=== PATIENT | male | born 1985 | race Two or more races ===

== ENCOUNTER 2017-05-14 18:46 | Emergency (ER) | payer MEDICAID ==
[~2017-05-14] VITALS: Ht 167.6 cm; Wt 90.7 kg
[2017-05-14 19:05] VITALS: BP 138/81
== END 2017-05-14 23:15 | disposition left against medical advice (07) ==
LOC: ER 18:58
DX: M79.602 Pain in left arm (principal); Z53.21 Procedure and treatment not carried out due to patient leaving prior to being seen by health care provider; W22.8XXA Striking against or struck by other objects, initial encounter; Y93.89 Activity, other specified; Y92.89 Other specified places as the place of occurrence of the external cause; Y99.8 Other external cause status

== ENCOUNTER 2020-11-16 23:45 | Emergency (ER) | payer SELFPAY ==
[~2020-11-16] VITALS: Ht 165.1 cm; Wt 72.6 kg
[2020-11-17] MEDS ORDERED: SODIUM CHLORIDE 0.9% 1,000 ML IV ONE ×2 (00:15→02:00)
[2020-11-17] MEDS ORDERED: MORPHINE SULFATE 4 MG/ML SYR/VIAL IV ONE (00:15)
[2020-11-17] MEDS ORDERED: ONDANSETRON HCL 4 MG/2 ML VIAL IV ONE (00:15)
[2020-11-17 00:46] LABS: Basophils # (auto) 0 10 ^3/uL (0-0.2); Basophils % (auto) 0.6 % (0.0-2.0); Eosinophils # (auto) 0.3 10 ^3/uL (0-0.8); Eosinophils % (auto) 3.7 % (0.0-7.0); Hematocrit 42.2 % (41.0-53.0); Hemoglobin 14.6 g/dL (13.5-17.5); Lymphocytes % (auto) 25.5 % (10.0-50.0); Mean Corpuscular Hemoglobin 29.4 pg (28.0-32.0); Mean Corpuscular Hgb Conc. 34.6 g/dL (32.0-36.0); Mean Corpuscular Volume 84.9 fL (80.0-100.0); Monocytes % (auto) 12.8 % (0.0-12.0); Neutrophils # (auto) 4.4 10 ^3/uL (1.6-8.6); Neutrophils % (auto) 57.4 % (37.0-80.0); Nucleated Red Blood Cells % 0.1 %; Platelet Count (auto) 273 10^3/uL (140-450); Red Blood Cells 4.97 10^6/uL (4.5-5.90); Red Cell Distribution Width 13.7 % (11.8-14.3); White Blood Cell 7.7 10^3/uL (4.4-10.8)
[2020-11-17 00:54] LABS: Urine Amorphous Crystal FEW /hpf (None Seen); Urine Bacteria FEW /hpf (None Seen); Urine Blood 1+ /uL (Negative); Urine Specific Gravity 1.017 (1.001-1.035); Urine Sperm PRESENT /hpf (None Seen); Urine WBC 354 /hpf (0 - 3); Urine WBC Clumps PRESENT /hpf (None Seen)
[2020-11-17 01:00] LABS: Partial Thromboplastin Time 30.2 sec (23.0-31.2)
[2020-11-17 01:04] LABS: Albumin 3.5 g/dL (3.4-5.0)
[2020-11-17 01:06] LABS: Bilirubin, Total 0.2 mg/dL (0.2-1.0); Total Protein 7.3 g/dL (6.4-8.2)
[2020-11-17] MEDS ORDERED: cefTRIAXone 1GM/50ML D5W 50 ML IV ONE (02:00)
[2020-11-17 02:45] VITALS: BP 124/87
== END 2020-11-17 04:55 | disposition home or self-care (01) ==
LOC: EDBD 23:45 → EDUNIT# 23:45 → ER 23:45
DX: N10 Acute pyelonephritis (principal); N39.0 Urinary tract infection, site not specified; F17.210 Nicotine dependence, cigarettes, uncomplicated
CPT/HCPCS: 36415; 74176; 80053; 81001; 83605; 85025; 85610; 85730; 87040; 87086; 96361; 96365; 96375; 99284; J0696; J2270; J2405

== ENCOUNTER 2020-12-06 05:43 | Inpatient (IN) | payer MEDICAID ==
[~2020-12-06] VITALS: Ht 167.6 cm; Wt 90.5 kg
[2020-12-06] MEDS ORDERED: PROMETHAZINE HCL 25 MG/ML 1ML IV PRN ×2 (07:15→09:45)
[2020-12-06] MEDS ORDERED: SODIUM CHLORIDE 0.9% 1,000 ML IVB ONE (07:15)
[2020-12-06] MEDS ORDERED: HYDROmorphone HCL 2 MG/ML VL IV ONE (07:15)
[2020-12-06 07:45] LABS: Basophils # (auto) 0 10 ^3/uL (0-0.2); Basophils % (auto) 0.4 % (0.0-2.0); Eosinophils # (auto) 0.2 10 ^3/uL (0-0.8); Eosinophils % (auto) 2.1 % (0.0-7.0); Hematocrit 42.1 % (41.0-53.0); Hemoglobin 14.4 g/dL (13.5-17.5); Lymphocytes # (auto) 0.8 10 ^3/uL (0.4-5.4); Lymphocytes % (auto) 9.9 % (10.0-50.0); Mean Corpuscular Hgb Conc. 34.3 g/dL (32.0-36.0); Mean Corpuscular Volume 84.5 fL (80.0-100.0); Monocytes # (auto) 1.2 10 ^3/uL (0-1.3); Monocytes % (auto) 13.8 % (0.0-12.0); Neutrophils # (auto) 6.3 10 ^3/uL (1.6-8.6); Neutrophils % (auto) 73.8 % (37.0-80.0); Platelet Count (auto) 250 10^3/uL (140-450); Red Blood Cells 4.99 10^6/uL (4.5-5.90); Red Cell Distribution Width 13.5 % (11.8-14.3); White Blood Cell 8.5 10^3/uL (4.4-10.8)
[2020-12-06 08:04] LABS: Albumin 3.4 g/dL (3.4-5.0); Potassium 4.2 mmol/L (3.5-5.1)
[2020-12-06 08:05] LABS: Urine Bacteria FEW /hpf (None Seen); Urine Blood 1+ /uL (Negative); Urine Specific Gravity 1.013 (1.001-1.035); Urine WBC 398 /hpf (0 - 3); Urine WBC Clumps PRESENT /hpf (None Seen)
[2020-12-06 08:07] LABS: Bilirubin, Total 0.2 mg/dL (0.2-1.0); Total Protein 7.3 g/dL (6.4-8.2)
[2020-12-06] MEDS ORDERED: cefTRIAXone 1GM/50ML D5W 50 ML IV ONE (09:00)
[2020-12-06] MEDS ORDERED: TEMAZEPAM 15 MG CAP PO PRN (09:45)
[2020-12-06] MEDS ORDERED: ACETAMINOPHEN 500 MG TAB PO PRN (09:45)
[2020-12-06] MEDS: SODIUM CHLORIDE 0.9% 1,000 ML IV SCH ×2 (10:00→19:50)
[2020-12-06] MEDS: FAMOTIDINE 20 MG TAB PO SCH ×2 (11:53→21:41)
[2020-12-06] MEDS: traMADol HCL 50 MG TAB PO PRN ×2 (14:52→20:27)
[2020-12-06 17:03] VITALS: BP 145/80
[2020-12-06 20:20] VITALS: BP 147/89
[2020-12-06 22:04] VITALS: BP 147/89
[2020-12-06 22:20] VITALS: BP 147/89
[2020-12-07 05:12] VITALS: BP 145/79
[2020-12-07] MEDS: SODIUM CHLORIDE 0.9% 1,000 ML IV SCH ×2 (05:35→15:05)
[2020-12-07 07:38] LABS: Hematocrit 40.4 % (41.0-53.0); Hemoglobin 14.1 g/dL (13.5-17.5); Mean Corpuscular Hemoglobin 29.2 pg (28.0-32.0); Mean Corpuscular Hgb Conc. 34.8 g/dL (32.0-36.0); Mean Corpuscular Volume 84.1 fL (80.0-100.0); Platelet Count (auto) 215 10^3/uL (140-450); Red Blood Cells 4.81 10^6/uL (4.5-5.90); Red Cell Distribution Width 13.1 % (11.8-14.3)
[2020-12-07 07:45] LABS: Basophils % (manual) 0 (0.0-2.0); Blast Cells 0; Eosinophils % (manual) 0 (0-7); Metamyelocytes % 0; Myelocytes % 0; Promyelocytes % 0; Reactive Lymphocytes 0
[2020-12-07] MEDS: traMADol HCL 50 MG TAB PO PRN ×2 (08:31→12:50)
[2020-12-07 09:00] VITALS: BP 140/80
[2020-12-07] MEDS: cefTRIAXone 1GM/50ML D5W 50 ML IV SCH (09:20)
[2020-12-07] MEDS: FAMOTIDINE 20 MG TAB PO SCH ×2 (09:20→21:27)
[2020-12-07 09:29] LABS: Band Neutrophils % (manual) 4; Lymphocytes % (manual) 13 (10.0-50.0); Monocytes % (manual) 15 (0-12)
[2020-12-07] MEDS: CIPROFLOXACIN HCL 500 MG TAB PO SCH ×2 (10:49→21:27)
[2020-12-07] MEDS: HYDROcodone-ACET 5/325MG TAB PO PRN ×2 (10:49→18:29)
[2020-12-07 13:00] VITALS: BP_SYST 137; BP_SYST 59; BP_DIAS 83
[2020-12-07 15:54] VITALS: BP 136/82
[2020-12-07 17:00] VITALS: BP 134/89
[2020-12-07 22:14] VITALS: BP 134/79
[2020-12-08] MEDS: HYDROcodone-ACET 5/325MG TAB PO PRN ×3 (01:06→23:15)
[2020-12-08] MEDS: SODIUM CHLORIDE 0.9% 1,000 ML IV SCH ×3 (01:32→21:45)
[2020-12-08 05:00] VITALS: BP 128/86
[2020-12-08 06:42] LABS: Hematocrit 39.2 % (41.0-53.0); Mean Corpuscular Hemoglobin 30.1 pg (28.0-32.0); Mean Corpuscular Hgb Conc. 35.8 g/dL (32.0-36.0); Mean Corpuscular Volume 83.9 fL (80.0-100.0); Platelet Count (auto) 210 10^3/uL (140-450); Red Blood Cells 4.67 10^6/uL (4.5-5.90); Red Cell Distribution Width 13.3 % (11.8-14.3); White Blood Cell 6.3 10^3/uL (4.4-10.8)
[2020-12-08 06:53] LABS: Basophils % (manual) 0 (0.0-2.0); Blast Cells 0; Metamyelocytes % 0; Myelocytes % 0; Promyelocytes % 0; Reactive Lymphocytes 0
[2020-12-08 07:05] LABS: BUN/Creatinine Ratio 13.5; Calcium 8.8 mg/dL (8.5-10.1)
[2020-12-08 07:35] LABS: Band Neutrophils % (manual) 11; Eosinophils % (manual) 4 (0-7); Lymphocytes % (manual) 20 (10.0-50.0); Monocytes % (manual) 18 (0-12)
[2020-12-08] MEDS: traMADol HCL 50 MG TAB PO PRN ×2 (07:41→19:04)
[2020-12-08] MEDS: cefTRIAXone 1GM/50ML D5W 50 ML IV SCH (08:38)
[2020-12-08 08:50] VITALS: BP 129/84
[2020-12-08] MEDS: FAMOTIDINE 20 MG TAB PO SCH ×2 (09:24→23:11)
[2020-12-08] MEDS: CIPROFLOXACIN HCL 500 MG TAB PO SCH ×2 (09:24→23:11)
[2020-12-08 12:06] LABS: Potassium 4.4 mmol/L (3.5-5.1)
[2020-12-08 13:00] VITALS: BP 132/79
[2020-12-08 17:00] VITALS: BP 158/102
[2020-12-08 22:00] VITALS: BP 139/87
[2020-12-09 05:00] VITALS: BP 137/85
[2020-12-09 05:45] LABS: Hematocrit 40.5 % (41.0-53.0); Hemoglobin 14.4 g/dL (13.5-17.5); Mean Corpuscular Hemoglobin 29.5 pg (28.0-32.0); Mean Corpuscular Hgb Conc. 35.6 g/dL (32.0-36.0); Mean Corpuscular Volume 82.9 fL (80.0-100.0); Platelet Count (auto) 252 10^3/uL (140-450); Red Blood Cells 4.89 10^6/uL (4.5-5.90); Red Cell Distribution Width 12.9 % (11.8-14.3); White Blood Cell 5.7 10^3/uL (4.4-10.8)
[2020-12-09 06:01] LABS: Potassium 4.2 mmol/L (3.5-5.1)
[2020-12-09 06:04] LABS: BUN/Creatinine Ratio 16.3
[2020-12-09 06:23] LABS: Basophils % (manual) 0 (0.0-2.0); Blast Cells 0; Metamyelocytes % 0; Myelocytes % 0; Promyelocytes % 0; Reactive Lymphocytes 0
[2020-12-09 07:22] LABS: Band Neutrophils % (manual) 1; Eosinophils % (manual) 8 (0-7); Lymphocytes % (manual) 30 (10.0-50.0); Monocytes % (manual) 13 (0-12)
[2020-12-09 09:00] VITALS: BP 140/72
[2020-12-09] MEDS: SODIUM CHLORIDE 0.9% 1,000 ML IV SCH (10:02)
[2020-12-09] MEDS: FAMOTIDINE 20 MG TAB PO SCH (10:03)
[2020-12-09] MEDS: CIPROFLOXACIN HCL 500 MG TAB PO SCH (10:03)
[2020-12-09] MEDS: HYDROcodone-ACET 5/325MG TAB PO PRN (10:03)
== END 2020-12-09 10:52 | disposition home or self-care (01) | DRG 720 ==
LOC: ER 05:43 → EDBD 05:43 → OVERFLOW 05:44 → EAST 16:26 → CENTRAL 19:46
PROVIDERS: ADMIT Internal Medicine; ATTEND Internal Medicine
DX: A41.9 Sepsis, unspecified organism (principal); N10 Acute pyelonephritis; E66.9 Obesity, unspecified; Z20.822 Contact with and (suspected) exposure to COVID-19; Z59.0 Homelessness; Z91.14 Patient's other noncompliance with medication regimen; Z83.3 Family history of diabetes mellitus; Z87.891 Personal history of nicotine dependence; Z91.19 Patient's noncompliance with other medical treatment and regimen; Z68.31 Body mass index [BMI] 31.0-31.9, adult
CPT/HCPCS: 36415; 71045; 80048; 80053; 81001; 83605; 83690; 83735; 84443; 85007; 85025; 85027; 87040; 87077; 87081; 87086; 87088; 87186; 87426; 93005; 96361; 96365; 96375; G0378; J0696

== ENCOUNTER 2020-12-30 11:56 | Emergency (ER) | payer MEDICAID ==
[~2020-12-30] VITALS: Ht 172.7 cm; Wt 86.2 kg
[2020-12-30] MEDS ORDERED: SODIUM CHLORIDE 0.9% 1,000 ML IV ONE ×2 (12:15)
[2020-12-30 12:25] LABS: Basophils # (auto) 0 10 ^3/uL (0-0.2); Basophils % (auto) 0.6 % (0.0-2.0); Eosinophils # (auto) 0.5 10 ^3/uL (0-0.8); Eosinophils % (auto) 6.3 % (0.0-7.0); Hematocrit 42.7 % (41.0-53.0); Hemoglobin 14.6 g/dL (13.5-17.5); Lymphocytes # (auto) 2.3 10 ^3/uL (0.4-5.4); Lymphocytes % (auto) 31.5 % (10.0-50.0); Mean Corpuscular Hgb Conc. 34.1 g/dL (32.0-36.0); Monocytes # (auto) 0.7 10 ^3/uL (0-1.3); Monocytes % (auto) 9.7 % (0.0-12.0); Neutrophils # (auto) 3.9 10 ^3/uL (1.6-8.6); Neutrophils % (auto) 51.9 % (37.0-80.0); Nucleated Red Blood Cells % 0.1 %; Platelet Count (auto) 254 10^3/uL (140-450); Red Blood Cells 5.03 10^6/uL (4.5-5.90); Red Cell Distribution Width 13.7 % (11.8-14.3); White Blood Cell 7.5 10^3/uL (4.4-10.8)
[2020-12-30] MEDS ORDERED: NALOXONE HCL 1MG/ML 2ML SYRINGE IV ONE ×2 (12:30→14:45)
[2020-12-30 12:43] LABS: Albumin 3.7 g/dL (3.4-5.0); Anion Gap 4 (5-15); Blood Alcohol < 3.0 mg/dL (0-5); Blood Urea Nitrogen 18 mg/dL (7-18); Calcium 8.7 mg/dL (8.5-10.1); Carbon Dioxide 31 mmol/L (21-32); Chloride 106 mmol/L (98-107); Glucose 105 mg/dL (74-106); Potassium 4.4 mmol/L (3.5-5.1); Sodium 141 mmol/L (136-145)
[2020-12-30 12:49] LABS: Alanine Aminotransferase 67 U/L (16-61); Alkaline Phosphatase 69 U/L (45-117); Aspartate Aminotransferase 32 U/L (15-37); BUN/Creatinine Ratio 15.1; Bilirubin, Total 0.2 mg/dL (0.2-1.0); GFR African American 89 mL/min; GFR Non-African American 74 mL/min; Total Protein 7.4 g/dL (6.4-8.2)
[2020-12-30] MEDS ORDERED: AZITHROMYCIN 500MG/ 250ML 250 ML IV ONE (14:15)
[2020-12-30] MEDS ORDERED: cefTRIAXone 1GM/50ML D5W 50 ML IV ONE (14:15)
[2020-12-30 15:11] LABS: Urine Bacteria NONE SEEN /hpf (None Seen); Urine Blood Negative /uL (Negative); Urine Hyaline Cast FEW /lpf (0 - 2); Urine Specific Gravity 1.023 (1.001-1.035); Urine WBC 5 /hpf (0 - 3)
[2020-12-30 15:26] LABS: Amphetamine Screen, Urine POSITIVE (NEGATIVE); Barbiturate Scree,Urine NEGATIVE (NEGATIVE); Benzodiazephine Screen, Urine NEGATIVE (NEGATIVE); Cannabinoid Screen, Urine POSITIVE (NEGATIVE); Cocaine Screen, Urine NEGATIVE (NEGATIVE); Opiate Scree,Urine POSITIVE (NEGATIVE); Phencyclidine Screen, Urine NEGATIVE (NEGATIVE)
[2020-12-30 17:15] VITALS: BP 142/95
== END 2020-12-30 17:41 | disposition home or self-care (01) ==
LOC: EDBD 11:56 → ER 11:56
DX: T50.904A Poisoning by unspecified drugs, medicaments and biological substances, undetermined, initial encounter (principal); J18.9 Pneumonia, unspecified organism; G93.41 Metabolic encephalopathy
CPT/HCPCS: 36415; 71045; 72040; 80053; 80307; 80320; 81001; 84484; 85025; 96361; 96365; 96368; 96375; 96376; 99285; J0456; J0696; J2310; J7030

== ENCOUNTER 2021-10-11 00:58 | Emergency (ER) | payer MEDICAID, OTHER ==
[~2021-10-11] VITALS: Ht 165.1 cm; Wt 90.7 kg
[2021-10-11 02:02] LABS: Basophils # (auto) 0 10 ^3/uL (0-0.2); Basophils % (auto) 0.6 % (0.0-2.0); Eosinophils # (auto) 0.1 10 ^3/uL (0-0.8); Eosinophils % (auto) 1.5 % (0.0-7.0); Hemoglobin 15.5 g/dL (13.5-17.5); Lymphocytes # (auto) 1.1 10 ^3/uL (0.4-5.4); Lymphocytes % (auto) 27.6 % (10.0-50.0); Mean Corpuscular Hemoglobin 28.2 pg (28.0-32.0); Mean Corpuscular Hgb Conc. 33.7 g/dL (32.0-36.0); Mean Corpuscular Volume 83.6 fL (80.0-100.0); Monocytes # (auto) 0.6 10 ^3/uL (0-1.3); Monocytes % (auto) 14.7 % (0.0-12.0); Neutrophils # (auto) 2.2 10 ^3/uL (1.6-8.6); Neutrophils % (auto) 55.6 % (37.0-80.0); Nucleated Red Blood Cells % 0.1 %
[2021-10-11 02:20] LABS: Albumin 3.9 g/dL (3.4-5.0); Calcium 8.6 mg/dL (8.5-10.1); Potassium 4.1 mmol/L (3.5-5.1)
[2021-10-11 02:26] LABS: BUN/Creatinine Ratio 14.3; Bilirubin, Total 0.3 mg/dL (0.2-1.0); Total Protein 7.7 g/dL (6.4-8.2)
[2021-10-11 07:43] VITALS: BP 148/106
== END 2021-10-11 08:35 | disposition home or self-care (01) ==
LOC: ER 00:58
DX: J20.9 Acute bronchitis, unspecified (principal); I10 Essential (primary) hypertension; F17.210 Nicotine dependence, cigarettes, uncomplicated; F12.10 Cannabis abuse, uncomplicated; F15.10 Other stimulant abuse, uncomplicated; Z59.00 Homelessness unspecified; Z20.822 Contact with and (suspected) exposure to COVID-19
CPT/HCPCS: 36415; 71045; 80053; 83880; 84484; 85025; 93005

== ENCOUNTER 2022-07-07 08:29 | Emergency (ER) | payer OTHER ==
[~2022-07-07] VITALS: Ht 170.2 cm; Wt 104.5 kg
[2022-07-07] MEDS ORDERED: cloNIDine HCL 0.1 MG TAB PO ONE ×2 (09:00)
[2022-07-07] MEDS ORDERED: HYDROcodone-ACET 10/325MG TAB PO ONE (09:15)
[2022-07-07] MEDS ORDERED: ACET-1080 PO ×2 (11:05→11:34)
[2022-07-07] MEDS ORDERED: TRIA37.56 PO ×2 (11:05→11:34)
[2022-07-07 11:10] VITALS: BP 148/98
== END 2022-07-07 11:19 | disposition home or self-care (01) ==
LOC: EDBD 08:29 → ER 08:29 → EDUNIT# 08:29 → ER 11:10
DX: G44.209 Tension-type headache, unspecified, not intractable (principal); I10 Essential (primary) hypertension; G43.909 Migraine, unspecified, not intractable, without status migrainosus; F17.210 Nicotine dependence, cigarettes, uncomplicated; Z59.00 Homelessness unspecified
CPT/HCPCS: 70450

== ENCOUNTER 2022-07-07 20:24 | Emergency (ER) | payer OTHER ==
[~2022-07-07] VITALS: Ht 172.7 cm; Wt 81.0 kg
[2022-07-07 20:24] VITALS: BP 144/90
[~2022-07-07 20:24] MED LIST: ACET-1080 PO; TRIA37.56 PO
[2022-07-07] MEDS ORDERED: OXYCODONE W/ ACETAMINOPHEN 5/325MG TABLET PO ONE (22:30)
== END 2022-07-08 00:32 | disposition left against medical advice (07) ==
LOC: EDBD 20:24 → ER 20:24
DX: R51.9 Headache, unspecified (principal); I10 Essential (primary) hypertension; Z53.21 Procedure and treatment not carried out due to patient leaving prior to being seen by health care provider
CPT/HCPCS: 93005

== ENCOUNTER 2022-09-05 14:19 | Emergency (ER) | payer OTHER ==
[~2022-09-05] VITALS: Ht 172.7 cm; Wt 90.9 kg
[2022-09-05 14:19] VITALS: BP 176/120
[2022-09-05] MEDS ORDERED: cloNIDine HCL 0.1 MG TAB PO ONE (14:30)
== END 2022-09-05 15:28 | disposition left against medical advice (07) ==
LOC: ER 14:19 → EDBD 14:19 → ER 15:28
DX: I10 Essential (primary) hypertension (principal); F12.10 Cannabis abuse, uncomplicated; R41.82 Altered mental status, unspecified; F17.210 Nicotine dependence, cigarettes, uncomplicated; Z59.00 Homelessness unspecified
CPT/HCPCS: 70450; 72192

== ENCOUNTER 2023-05-13 03:13 | Emergency (ER) | payer OTHER ==
[~2023-05-13] VITALS: Ht 167.6 cm; Wt 85.0 kg
[~2023-05-13 03:13] MED LIST changes: -TRIA37.56 PO; +TRIA37.587 PO
[2023-05-13 03:47] LABS: Basophils # (auto) 0 10 ^3/uL (0-0.2); Basophils % (auto) 0.8 % (0.0-2.0); Eosinophils # (auto) 0.2 10 ^3/uL (0-0.8); Eosinophils % (auto) 4.7 % (0.0-7.0); Hematocrit 41.4 % (41.0-53.0); Hemoglobin 14.3 g/dL (13.5-17.5); Lymphocytes # (auto) 1.3 10 ^3/uL (0.4-5.4); Mean Corpuscular Hemoglobin 28.7 pg (28.0-32.0); Mean Corpuscular Hgb Conc. 34.5 g/dL (32.0-36.0); Mean Corpuscular Volume 83.1 fL (80.0-100.0); Monocytes # (auto) 0.7 10 ^3/uL (0-1.3); Neutrophils # (auto) 2.6 10 ^3/uL (1.6-8.6); Neutrophils % (auto) 53.5 % (37.0-80.0); Nucleated Red Blood Cells % 0.1 %; Red Blood Cells 4.98 10^6/uL (4.5-5.90); Red Cell Distribution Width 13.6 % (11.8-14.3); White Blood Cell 4.8 10^3/uL (4.4-10.8)
[2023-05-13 03:56] LABS: Albumin 3.6 g/dL (3.4-5.0); Calcium 8.4 mg/dL (8.5-10.1); Magnesium 2.5 mg/dL (1.6-2.6); Potassium 3.5 mmol/L (3.5-5.1)
[2023-05-13 04:00] LABS: BUN/Creatinine Ratio 12.2 (10.0-20.0); Bilirubin, Total 0.6 mg/dL (0.2-1.0)
[2023-05-13 04:04] LABS: INR 1.02 (0.9-1.15); Partial Thromboplastin Time 28.8 SEC (24.5-34.5)
[2023-05-13 05:34] VITALS: BP 145/105; PULSE 77; RESP 14; TEMP 98.1; O2SAT 98
== END 2023-05-13 06:30 | disposition home or self-care (01) ==
LOC: ER 03:13 → EDBD 03:13 → ER 06:30
DX: R07.89 Other chest pain (principal); I10 Essential (primary) hypertension; F17.210 Nicotine dependence, cigarettes, uncomplicated; Z59.00 Homelessness unspecified; Z79.899 Other long term (current) drug therapy
CPT/HCPCS: 36415; 80053; 83735; 83880; 84484; 85025; 85610; 85730; 93005